=== PATIENT | female | born 1985 | race Hispanic/Latino ===

== ENCOUNTER 2024-04-03 09:50 | Emergency (ER) | payer OTHER ==
[~2024-04-03] VITALS: Ht 152.4 cm; Wt 65.8 kg
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
[2024-04-03] MEDS ORDERED: KETO10TA2 PO (10:47)
[2024-04-03] MEDS ORDERED: CYCL10TA16 PO (10:47)
[2024-04-03] MEDS: ketOROlac 15MG/ML VIAL (15MG/ML) IM ONE (11:05)
[2024-04-03] MEDS: ORPHENADRINE 60MG/2ML IM ONE (11:05)
[2024-04-03 11:06] VITALS: BP 148/81; PULSE 74; RESP 18; TEMP 98.2; O2SAT 98
--- NOTE | 2024-04-03 11:15 | HMCIMG ---
THORACIC SPINE 2VWS HISTORY: Back pain COMPARISON: None FINDINGS: 2 images of thoracic spine were obtained. There is straightening of normal lordotic curvature which may be related to muscle spasm or positioning. No loss of vertebral height is seen. No fracture or dislocation is seen. IMPRESSION: 1. No fracture is seen.
== END 2024-04-03 11:20 | disposition home or self-care (01) ==
LOC: EDH 09:50
DX: S29.012A Strain of muscle and tendon of back wall of thorax, initial encounter (principal); Z79.899 Other long term (current) drug therapy; Z88.5 Allergy status to narcotic agent; V89.2XXA Person injured in unspecified motor-vehicle accident, traffic, initial encounter; Y93.89 Activity, other specified; Y92.488 Other paved roadways as the place of occurrence of the external cause; Y99.8 Other external cause status
CPT/HCPCS: 99284; 72070; 96372 ×2; J1885; J2360

== ENCOUNTER 2024-11-02 17:28 | Emergency (ER) | payer BC, OTHER ==
[~2024-11-02] VITALS: Ht 154.9 cm; Wt 68.0 kg
[~2024-11-02 17:28] MED LIST: CYCL10TA16 PO; KETO10TA2 PO
[2024-11-02] MEDS: 0.9%NACL 1000ML 1,000 ML IV ONE (18:25)
[2024-11-02] MEDS: metoCLOPRAmide 10 MG/2 ML VIAL IVP ONE (18:26)
[2024-11-02] MEDS: DiphenhydrAMINE HCL 50 MG/ML VIAL IV ONE (18:26)
[2024-11-02] MEDS: acetaMINOPHEN 500 MG TABLET PO ONE (18:26)
--- NOTE | 2024-11-02 18:28 | ERN ---
ED Note History of Present Illness Stated Complaint: NECK PAIN/ HEADACHE Chief Complaint: Neck Pain Time Seen by MD: 18:04 Time Seen by Midlevel: 18:04 Dictation: The patient is a 39-year-old female with a history of C6 bulging disk who presents to the emergency department with complains of frontal headache associated with nausea onset this morning around 10am. Patient reports taking tylenol with no relief. Denies history of headaches, Denies any head trauma or fevers. Denies any upper respiratory symptoms. Allergies: Coded Allergies: codeine (Unverified Allergy, Unknown, 04/03/24) Home Meds Active Scripts Aspirin/Acetaminophen/Caffeine (Excedrin Extra Strength Caplet) 250 Mg-250 Mg-65 Mg Tablet, 2 EACH PO DAILY PRN for headache, #30 TAB Prov:ONEIL RIOS ACCOUNTING CONSULTANT 11/02/24 Cyclobenzaprine HCl (Flexeril) 10 Mg Tab, 10 MG PO BID for muscle sstiffness for 5 Days, #10 TAB 0 Refills Prov:DIANE KUNZ 04/03/24 Ketorolac Tromethamine (Ketorolac Tromethamine) 10 Mg Tablet, 10 MG PO BID for 5 Days, #10 TAB Prov:DIANE KUNZ 04/03/24 Past Medical History Past Medical History: High Cholesterol Surgical History: None LMP: Nov 02, 2024 RN Note Reviewed/Agreed w/PFSH: Yes Review of System Dictation Constitutional: Negative for fever,chills, and weight loss Eyes: Negative for injury, pain,redness, and discharge ENT: Negative for injury,pain or swelling Cardiovascular: Negative for chest pain, palpitations, and edema Respiratory: Negative for shortness of breath, cough, and wheezing, Abdomen/GI: Negative for abdominal pain, vomiting, diarrhea, and constipation positive for nausea Back: Negative for injury and pain : Negative for injury, bleeding and discharge MS/Extremity: Negative for injury and deformity Skin: Negative for rash, and discoloration Neuro: Negative for weakness, numbness, tingling, and seizure positive for headache Psych: Negative for suicide ideation, homicidal ideation, and hallucinations Initial Vital Sign VS Vital Signs Date Time Temp Pulse Resp B/P (MAP) Pulse Ox O2 Delivery O2 Flow Rate FiO2 11/02/24 17:30 98.1 86 18 140/96 99 Room Air 0 11/02/24 17:43 21 Physical Exam Dictation Vital Signs reviewed General Appearance: Alert, oriented x 3, no acute distress, well developed, nourished. Head and Face: non-traumatic. Eyes: PERRL, pink conjunctivas, eyelid no trauma, anterior chamber with arcus senilis. Ears: Pinnas intact and no signs of trauma or erythema ear canals clear and no discharge TM no erythema Nose: No discharge, no bleeding. Oropharynx: Mouth normal, tongue pink. pharynx clear,no erythema, tonsils no exudates, no abscesses noted, mucous membrane moist Neck: Supple, non-tender, no thyromegaly, no masses, no JVD, no bruits Breast:Deferred Chest:No tenderness, no crepitus, no paradoxical movement, no retractions Lungs:Clear, well-ventilated, symmetric, no rales, no wheezing, no rhonchi, no stridor, good breath sounds bilaterally Heart: Regular rate, regular rhythm, no murmur, no gallops Vascular: no peripheral edema, Abdomen: Soft, positive bowel sounds, nondistended, no guarding, nontender, no rebound, no masses no hepatomegaly, no splenomegaly, no Chanel's sign, no hernias. Rectal: Deferred Genital: Deferred Neurological: Normal speech, motor function intact, sensory function intact, upper extremities equal in strength, lower extremities equal in strength. Musculoskeletal: Neck nontender, full range of motion, back nontender, full range of motion, Extremities: nontender, full range of motion Skin: Color pink, dry, no turgor, no rash, no lacerations, no abrasions, no contusions. Lymphatic: Deferred Results (Laboratory/Radiology) Laboratory/Radiology Laboratory Tests Test 11/02/24 18:22 White Blood Count 8.8 K/uL (4.8-10.8) Red Blood Count 4.79 MIL/uL (4.00-5.50) Hemoglobin 14.1 g/dL (12.0-16.0) Hematocrit 41.3 % (36-48) Mean Corpuscular Volume 86.2 fL (79-99) Mean Corpuscular Hemoglobin 29.4 pg (27.0-33.0) Mean Corpuscular Hemoglobin Concent 34.1 g/dL (32.0-36.0) Red Cell Distribution Width 12.7 % (11.0-15.5) Platelet Count 332 K/uL (130-400) Mean Platelet Volume 10.4 fL (7.5-10.5) Immature Granulocyte % (Auto) 0.3 % (0-1) Neutrophils (%) (Auto) 76.4 % (40.0-77.0) Lymphocytes (%) (Auto) 14.9 % (21.0-51.0) L Monocytes (%) (Auto) 6.8 % (3.0-13.0) Eosinophils (%) (Auto) 0.5 % (0.0-8.0) Basophils (%) (Auto) 1.1 % (0.0-5.0) Neutrophils # (Auto) 6.7 K/uL (1.8-7.7) Lymphocytes # (Auto) 1.3 K/uL (1.0-4.8) Monocytes # (Auto) 0.6 K/uL (0.1-1.0) Eosinophils # (Auto) 0.04 K/uL (0.00-0.70) Basophils # (Auto) 0.10 K/uL (0.00-0.20) Absolute Immature Granulocyte (auto 0.03 K/uL (0-1) Nucleated Red Blood Cells 0.0 % (0.0-0.19) Sodium Level 136 mmol/L (136-145) Potassium Level 3.8 mmol/L (3.5-5.1) Chloride Level 99 mmol/L (101-111) L Carbon Dioxide Level 29 mmol/L (21-32) Blood Urea Nitrogen 11 mg/dL (7-18) Creatinine 0.6 mg/dL (0.5-1.0) Glomerular Filtration Rate Calc 116 mL/min (>90) Random Glucose 87 mg/dL (70-105) Total Calcium 9.3 mg/dL (8.5-10.1) Serum Test, Qualitative NEGATIVE (NEGATIVE) Labs Reviewed?: Yes ED Course ED Course Orders Procedure Category Date Status Time Acetaminophen 500mg PHA 11/02/24 Complete Tab (Tylenol 500mg T 18:30 Metoclopramide 10 PHA 11/02/24 Complete Mg/2 Ml Vial (Reglan 1 18:30 Diphenhydramine Hcl PHA 11/02/24 Complete (Benadryl Inj) 18:30 0.9%Nacl 1000ml (Ns PHA 11/02/24 Complete 1000ml) 18:30 Cbc With Differential LAB 11/02/24 Complete 18:11 Basic Metabolic Panel LAB 11/02/24 Complete 18:11 Testing, LAB 11/02/24 Complete Serum Hcg 18:11 Current Medications Medications (Trade) Dose Ordered Sig/Sarai Route PRN Reason Start Time Stop Time Status Last Admin Dose Admin Acetaminophen (TYLenol 500MG TAB) 1,000 mg ONCE ONCE PO 11/02/24 18:30 11/02/24 18:31 DC 11/02/24 18:26 Diphenhydramine HCl (BENAdryl INJ) 25 mg ONCE ONCE IV 11/02/24 18:30 11/02/24 18:31 DC 11/02/24 18:26 Metoclopramide HCl (regLAN 10MG IV) 10 mg ONCE ONCE IVP 11/02/24 18:30 11/02/24 18:31 DC 11/02/24 18:26 Sodium Chloride 1,000 ml @ 0 mls/hr ONCE ONCE IV 11/02/24 18:30 11/02/24 18:31 DC 11/02/24 18:25 Vital Signs Date Time Temp Pulse Resp B/P (MAP) Pulse Ox O2 Delivery O2 Flow Rate FiO2 11/02/24 19:29 98.2 80 18 128/81 99 Room Air* 0 21 11/02/24 17:43 98.4 84 18 132/84 98 Room Air* 0 21 11/02/24 17:30 98.1 86 18 140/96 99 Room Air 0 Medical Decision Making MDM The patient is a 39-year-old female with a history of C6 bulging disk who presents to the emergency department with complains of frontal headache associated with nausea onset this morning around 10am. Patient reports taking Tylenol with no relief. Denies history of headaches, Denies any head trauma or fevers. Denies any upper respiratory symptoms. CBC showed no leukocytosis, no anemia, chemistry showed no electrolyte imbalance, mild hypochloremia, negative . Reports headache improved after medication administration. On physical exam patient continues neurologica lly intact. No need for any further imaging at this time patient has symptoms consistent with a tension headache. Labs discussed with the patient who agrees to follow up with PCP. Differential diagnosis: Migraine headache , tension headache, dehydration, electrolyte imbalance Need for hospitalization: Patient does not meet criteria for hospitalization. There are no social concerns with this patient. DX & DISP Disposition: Discharge Departure Impression: Primary Impression: Tension headache Condition: Stable Scripts Aspirin/Acetaminophen/Caffeine (Excedrin Extra Strength Caplet) 250 Mg-250 Mg-65 Mg Tablet 2 EACH PO DAILY PRN for headache, #30 TAB Prov: ONEIL RIOS 11/02/24 Additional Instructions: Your labs were unremarkable. Follow up with your pcp in 1-2 days. Stay hydrated as tolerated. If symptoms worsen, you develop severe headache or there is a change in mental status please return to ER. FOLLOW-UP WITH PRIMARY CARE PROVIDER IN 1 TO 2 DAYS. TAKE MEDICATIONS DIRECTED HERE IN THE EMERGENCY ROOM. OKAY TO CONTINUE HOME MEDICATIONS UNLESS OTHERWISE DISCUSSED DURING YOUR VISIT IN THE EMERGENCY ROOM TODAY. RETURN TO YOUR NEAREST EMERGENCY ROOM IF SYMPTOMS WORSEN OR IF THERE IS NO IMPROVEMENT. CALL 911 IF YOU NEED IMMEDIATE ASSISTANCE. TAKE TYLENOL [id number] NEEDED AND IF NO CONTRAINDICATIONS ARE PRESENT. INCREASE ORAL HYDRATION. A WOUND CULTURE OR URINE CULTURE WAS ORDERED HERE IN THE EMERGENCY ROOM DEPARTMENT PLEASE FOLLOW-UP WITH PRIMARY CARE PROVIDER AND ADVISE THEM TO GET REPEAT PORTS FROM OUR FACILITY. IF YOU HAD ANY DENITA WRAP/SPLINTS THAT WERE APPLIED HERE, PLEASE DO NOT REMOVE THEM UNTIL YOU SEE YOUR PRIMARY CARE OR SPECIALTY. Referrals: KENDRA HUNTLEY MD (PCP) Time of Disposition: 19:09 I have reviewed the case, and I agree with, Diagnosis and Plan ONEIL RIOS Nov 02, 2024 18:28 JESSICA TRIPLETT DO Nov 03, 2024 04:08
[2024-11-02 18:33] LABS: BASOPHILS % (AUTO) 1.1 % (0.0-5.0); EOSINOPHILS # (AUTO) 0.04 K/uL (0.00-0.70); EOSINOPHILS % (AUTO) 0.5 % (0.0-8.0); HEMATOCRIT 41.3 % (36-48); IMMATURE GRANULOCYTE ABSOLUTE 0.03 K/uL (0-1); LYMPHOCYTES # (AUTO) 1.3 K/uL (1.0-4.8); LYMPHOCYTES % (AUTO) 14.9 % (21.0-51.0); MEAN CORPUSCULAR HEMOGLOBIN 29.4 pg (27.0-33.0); MEAN CORPUSCULAR HGB CONC 34.1 g/dL (32.0-36.0); MEAN CORPUSCULAR VOLUME 86.2 fL (79-99); MONOCYTES # (AUTO) 0.6 K/uL (0.1-1.0); MONOCYTES % (AUTO) 6.8 % (3.0-13.0); NEUTROPHILS # (AUTO) 6.7 K/uL (1.8-7.7); NEUTROPHILS % (AUTO) 76.4 % (40.0-77.0); PLATELET COUNT (AUTO) 332 K/uL (130-400); RED BLOOD CELL COUNT(AUTO) 4.79 MIL/uL (4.00-5.50); RED CELL DISTRIBUTION WIDTH 12.7 % (11.0-15.5); WHITE BLOOD COUNT (AUTO) 8.8 K/uL (4.8-10.8)
[2024-11-02 18:41] LABS: CREATININE 0.6 mg/dL (0.5-1.0); POTASSIUM 3.8 mmol/L (3.5-5.1)
[2024-11-02] MEDS ORDERED: ASPI-1190 PO (19:11)
[2024-11-02 19:29] VITALS: BP 128/81; PULSE 80; RESP 18; TEMP 98.3; O2SAT 99
== END 2024-11-02 19:29 | disposition home or self-care (01) ==
LOC: EDH 17:28
DX: G44.209 Tension-type headache, unspecified, not intractable (principal); E78.00 Pure hypercholesterolemia, unspecified; Z79.899 Other long term (current) drug therapy; Z88.5 Allergy status to narcotic agent
CPT/HCPCS: 99284; 96374; 96375; 80048; 84703; 85025; 36415; J1200; J7030; J2765